=== PATIENT | male | born 1995 | race African-American/Black ===

== ENCOUNTER 2020-02-24 10:30 | Emergency (ER) | payer OTHER ==
[2020-02-24 10:49] VITALS: BP 106/70; PULSE 73; RESP 18; TEMP 98.1
--- NOTE | 2020-02-24 11:13 | ED ---
ENT HPI - General Chief complaint: ENT Stated complaint: sore throat Time Seen by Provider: 02/24/20 10:55 Source: patient, RN notes reviewed, old records reviewed Mode of arrival: ambulatory Limitations: no limitations - History of Present Illness Initial comments: 24 year old male, smoker whom presents today for complaints of sore throat, burning sensation for the past week. He reports no fever, chills. He occasionally has runny nose. Patient reports history of smoker cough. He reports no abdominal pain. - Related Data Previous Rx's Medication Instructions Recorded Famotidine 20 mg PO BID #12 tab 02/24/20 Fluticasone Propionate [Flonase 1 spray EA NOSTRIL DAILY #1 bottle 02/24/20 Allergy Relief] Sucralfate [Carafate] 1 gm PO BID #100 ml 02/24/20 Allergies Allergy/AdvReac Type Severity Reaction Status Date / Time No Known Allergies Allergy Verified 02/24/20 10:49 Review of Systems ROS Statement: Those systems with pertinent positive or pertinent negative responses have been documented in the HPI. ROS Other: All systems not noted in ROS Statement are negative. Past Medical History Past Medical History: No Reported History History of Any Multi-Drug Resistant Organisms: None Reported Past Surgical History: No Surgical Hx Reported Past Psychological History: No Psychological Hx Reported Smoking Status: Current every day smoker Past Alcohol Use History: None Reported Past Drug Use History: Marijuana General Exam Limitations: no limitations General appearance: alert, in no apparent distress Head exam: Present: atraumatic, normocephalic, normal inspection Eye exam: Present: normal appearance, PERRL, EOMI. Absent: scleral icterus, conjunctival injection, periorbital swelling ENT exam: Present: normal exam, mucous membranes moist, other (minimal erythema, no exudate or swelling. Patient reports the pain is lower into the lower neck and esophagous. ) Neck exam: Present: normal inspection. Absent: tenderness, meningismus, lymphadenopathy Respiratory exam: Present: normal lung sounds bilaterally. Absent: respiratory distress, wheezes, rales, rhonchi, stridor Cardiovascular Exam: Present: regular rate, normal rhythm, normal heart sounds. Absent: systolic murmur, diastolic murmur, rubs, gallop, clicks Extremities exam: Present: normal inspection, full ROM, normal capillary refill. Absent: tenderness, pedal edema, joint swelling, calf tenderness Back exam: Present: normal inspection Neurological exam: Present: alert, oriented X3, CN II-XII intact Psychiatric exam: Present: normal affect, normal mood Skin exam: Present: warm, dry, intact, normal color. Absent: rash Course Vital Signs 02/24/20 10:46 Temperature 98.1 F Pulse Rate 73 Respiratory 18 Rate Blood Pressure 106/70 O2 Sat by Pulse 100 Oximetry Medical Decision Making - Medical Decision Making 24 year old male presents today for concern for sore throat, burning sensation over the past week. He has no fever and has normal oropharynx. Discussed this is likely related to smoking and likely GERD. Discussed antacid medication, stopping smoking, and PCP follow up. He complains of some nasal irritation and swelling, and discussed likely allergies and to use nasal steriod spray. Return parameters discussed. Disposition Clinical Impression: Smoker, Pharyngitis Disposition: HOME SELF-CARE Condition: Good Instructions (If sedation given, give patient instructions): Pharyngitis (ED) Additional Instructions: Patient is stop smoking. Follow-up with primary care physician. Congestion nasal spray, throat lozenges and an acid medicine as prescribed. Return the ED if any alarming signs or symptoms occur. Prescriptions: Sucralfate [Carafate] 1 gm PO BID #100 ml Famotidine 20 mg PO BID #12 tab Fluticasone Propionate [Flonase Allergy Relief] 1 spray EA NOSTRIL DAILY #1 bot tle Is patient prescribed a controlled substance at d/c from ED?: No Referrals: None,Stated [Primary Care Provider] - 1-2 days Time of Disposition: 11:09
== END 2020-02-24 11:28 | disposition home or self-care (01) ==
LOC: EC 10:30
DX: J02.9 Acute pharyngitis, unspecified (principal); F17.200 Nicotine dependence, unspecified, uncomplicated
CPT/HCPCS: 99283

== ENCOUNTER 2020-03-07 14:50 | Emergency (ER) | payer OTHER ==
[2020-03-07 14:56] VITALS: RESP 18
[2020-03-07] MEDS ORDERED: IBUPROFEN 800 MG TAB PO STA (15:08)
--- NOTE | 2020-03-07 15:08 | ED ---
Upper Extremity HPI - General Chief Complaint: Extremity Injury, Upper Stated Complaint: thumb caught in press Time Seen by Provider: 03/07/20 15:00 Source: patient Mode of arrival: ambulatory Limitations: no limitations - History of Present Illness Initial Comments: Patient is a 24-year-old male presents to emergency Department with a chief complaint of a thumb injury. 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 Patient does report a skin tear on the dorsal aspect of the thumb. Patient denies taking medication to alleviate the symptoms. Denies any numbness or tingling. States he has full range of motion in the thumb. States the incident occurred about one hour prior to arrival. Denies any alleviating or aggravating factors. - Related Data Previous Rx's Medication Instructions Recorded Famotidine 20 mg PO BID #12 tab 02/24/20 Fluticasone Propionate [Flonase 1 spray EA NOSTRIL DAILY #1 bottle 02/24/20 Allergy Relief] Sucralfate [Carafate] 1 gm PO BID #100 ml 02/24/20 Allergies Allergy/AdvReac Type Severity Reaction Status Date / Time No Known Allergies Allergy Verified 03/07/20 14:56 Review of Systems ROS Statement: Those systems with pertinent positive or pertinent negative responses have been documented in the HPI. ROS Other: All systems not noted in ROS Statement are negative. Past Medical History Past Medical History: No Reported History History of Any Multi-Drug Resistant Organisms: None Reported Past Surgical History: No Surgical Hx Reported Past Psychological History: No Psychological Hx Reported Smoking Status: Current every day smoker Past Alcohol Use History: None Reported Past Drug Use History: Marijuana General Exam Limitations: no limitations General appearance: alert, in no apparent distress Head exam: Present: atraumatic, normocephalic, normal inspection Eye exam: Present: normal appearance, PERRL, EOMI Pupils: Present: normal accommodation ENT exam: Present: normal exam, normal oropharynx, mucous membranes moist Neck exam: Present: normal inspection, full ROM Respiratory exam: Present: normal lung sounds bilaterally Cardiovascular Exam: Present: regular rate, normal rhythm, normal heart sounds Extremities exam: Present: full ROM (Full range of motion in the left thumb.), tenderness (Tenderness at the site of injury), normal capillary refill, other (+2 ulnar and radial pulses bilaterally.). Absent: normal inspection (Skin tear on the dorsal aspect on the interphalangeal joint.) Back exam: Present: normal inspection, full ROM Neurological exam: Present: alert, oriented X3 Psychiatric exam: Present: normal affect, normal mood Skin exam: Present: warm, dry, intact, normal color Course Vital Signs 03/07/20 03/07/20 14:54 16:55 Temperature 98.4 F 96.9 F L Pulse Rate 99 105 H Respiratory 18 18 Rate Blood Pressure 119/79 136/68 O2 Sat by Pulse 100 99 Oximetry Medical Decision Making - Medical Decision Making Patient is a 24-year-old male presenting to emergency Department with a chief complaint of a thumb injury. On exam patient does appear to have a skin tear on the left interphalangeal joint of the thumb. However, he does have full range of motion with a normal neurovascular exam. X-ray is unremarkable. Patient was given oral ibuprofen. On reevaluation patient reports improvement in symptoms. Patient advised to apply ice compress an alternate between Tylenol and Motrin for pain control. Return parameters were thoroughly discussed with patient was understanding and agreeable. Case discussed with physician. Disposition Clinical Impression: Injury of thumb, left Disposition: HOME SELF-CARE Condition: Stable Instructions (If sedation given, give patient instructions): Crush Injury (ED) Additional Instructions: Apply ice compress alternate between Tylenol Motrin for pain control. Return to emergency department if symptoms worsen. Is patient prescribed a controlled substance at d/c from ED?: No Referrals: None,Stated [Primary Care Provider] - 1-2 days Time of Disposition: 16:16
--- NOTE | 2020-03-07 15:28 | XR ---
EXAMINATION TYPE: XR hand complete LT DATE OF EXAM: 03/07/2020 CLINICAL HISTORY: Crushing injury worse over first and second fingers with pain TECHNIQUE: Frontal, lateral and oblique images of the left hand are obtained. COMPARISON: None. FINDINGS: There is no acute fracture/dislocation evident in the left hand with particular attention to first and second fingers at the area of clinical concern. The joint spaces in the left hand appear within normal limits. The overlying soft tissue appears unremarkable. IMPRESSION: There is no acute fracture or dislocation in the left hand.
[2020-03-07 16:56] VITALS: BP 136/68; PULSE 105; TEMP 96.9
== END 2020-03-07 16:56 | disposition home or self-care (01) ==
LOC: EC 14:50
DX: S61.012A Laceration without foreign body of left thumb without damage to nail, initial encounter (principal); F17.200 Nicotine dependence, unspecified, uncomplicated; W23.0XXA Caught, crushed, jammed, or pinched between moving objects, initial encounter
CPT/HCPCS: 99283

== ENCOUNTER 2020-11-11 16:16 | Emergency (ER) | payer OTHER ==
[2020-11-11 16:23] VITALS: RESP 18; TEMP 98.4
--- NOTE | 2020-11-11 16:51 | ED ---
Extremity Problem HPI - General Chief complaint: Extremity Problem,Nontraumatic Stated complaint: Chest pain, R arm numbness Time Seen by Provider: 11/11/20 16:33 Source: patient Mode of arrival: ambulatory Limitations: no limitations - History of Present Illness Initial comments: This is a 25-year-old male with no past medical history presents or urgency department for right upper extremity numbness. The patient states that he noticed it when he woke up earlier today. He states that at 4 AM when he went to bed he noticed a little bit of tingling in his face however states since then this has resolved however when he woke up he knows that he had numbness going down the posterior aspect of his right arm into the fourth and fifth digit. Patient states he has not had anything like this previously. He does admit to hitting his elbow on a piece of metal 2 or 3 days ago however has not noted any symptoms there. He does admit to intermittent episodes of right-sided neck pain and headaches which is been going on for quite some time. He does not currently have any pain or headache. He denies any facial droop, slurred speech, difficult he was swallowing. Denies any lower chrie weakness. Denies any weakness in the upper extremity. He does admit to intermittent episodes of chest palpitations and pain. He feels like the right side of his chest is twitching and this seems to be going into his right arm as well. He states that he does have a family history for strokes in his grandmother and was current concerned about a stroke. - Related Data Home Medications Medication Instructions Recorded Confirmed No Known Home Medications 11/11/20 11/11/20 Allergies Allergy/AdvReac Type Severity Reaction Status Date / Time No Known Allergies Allergy Verified 11/11/20 17:28 Review of Systems ROS Statement: Those systems with pertinent positive or pertinent negative responses have been documented in the HPI. ROS Other: All systems not noted in ROS Statement are negative. Past Medical History Past Medical History: No Reported History History of Any Multi-Drug Resistant Organisms: None Reported Past Surgical History: No Surgical Hx Reported Past Psychological History: No Psychological Hx Reported Smoking Status: Vaper Past Alcohol Use History: None Reported Past Drug Use History: Marijuana General Exam - General Exam Comments Initial Comments: Constitutional: Appears comfortable Head: Normocephalic atraumatic Eyes: no conjunctival injection No scleral icterus EOMI pupils 4mm and reactive b/l Neck: No JVD Supple, no midline tenderness Heart: Regular rate rhythm normal S1-S2 no murmurs Lungs: Clear to auscultation bilaterally No wheezing No rales Abdomen: Soft nondistended nontender Extremities: Non edematous DP pulses intact Radial pulses intact Neuro: A&Ox3 cranial nerves II through XII are grossly intact, 5 out of 5 strength in upper extremities and lower Chevys bilaterally specifically with some extension, finger abduction, wrist flexion and extension, extension and flexion at the elbow. The patient claims to have decreased sensation along the medial aspect of the right extremity from the elbow to the fourth and fifth digits. Psych: Appropriate mood and affect Limitations: no limitations Course Vital Signs 11/11/20 11/11/20 16:17 17:56 Temperature 98.4 F Pulse Rate 84 61 Respiratory 18 18 Rate Blood Pressure 111/64 106/70 O2 Sat by Pulse 100 99 Oximetry - Reevaluation(s) Reevaluation #1: EKG interpreted at 1743 showing normal sinus rhythm with a rate of 56. There is no abnormal ST segment changes or T-wave inversions. QTC is 387. Other intervals normal. No ectopy. 11/11/20 18:01 Medical Decision Making - Medical Decision Making This is a 25-year-old male who presents emergency department for right-sided extremity numbness. Patient reported numbness along the description of the ulnar nerve. He did not have any weakness in the extremity. I did not note any twitching or numbness in the chest or arm area on my examination however the patient stated that it did happen once after he got his imaging studies performed. The patient otherwise has no other focal neurologic findings on exam. CT head and the neck were unremarkable. Chest x-ray and EKG were also unremarkable. At this time feel the patient is likely suffering from peripheral neuropathy likely secondary to the injury that he sustained a few days ago. He needs close follow-up with his primary doctor and may require further testing including an EMG if his symptoms persist however anticipate that they should improve over the next few weeks. Told to return emergency Department if he has any worsening or changing symptoms at all. All questions were answered. Disposition Clinical Impression: Peripheral neuropathy Disposition: HOME SELF-CARE Condition: Stable Instructions (If sedation given, give patient instructions): Peripheral Neuropathy (ED) Is patient prescribed a controlled substance at d/c from ED?: No Referrals: Bazo,Charbal B, MD [REFERRING] - 1-2 days
--- NOTE | 2020-11-11 17:09 | CT ---
EXAMINATION TYPE: CT brain fritz wo con DATE OF EXAM: 11/11/2020 COMPARISON: None HISTORY: RIGHT ARM NUMBNESS. CT DLP: 1324.9 mGycm Automated exposure control for dose reduction was used. Ventricles have normal size. There is no mass effect nor midline shift. There is no sign of intracran ial hemorrhage. There is no evidence of cerebral edema. Calvarium is intact. Cervical vertebra have normal alignment. Posterior elements are intact. Facet joints are intact. Prev ertebral soft tissues appear normal. Mastoid sinuses appear normal. Occipital bone is intact. There i s mild mucosal thickening in the right maxillary and ethmoid sinus. IMPRESSION: Negative unenhanced head CT scan. Minimal sinusitis. Normal CT scan of the cervical spine.
--- NOTE | 2020-11-11 17:19 | XR ---
EXAMINATION TYPE: XR chest 2V DATE OF EXAM: 11/11/2020 COMPARISON: 06/01/2017 HISTORY: Right arm numbness TECHNIQUE: FINDINGS: Heart and mediastinum are normal. Lungs are clear. Diaphragm is normal. Bony thorax appears normal. IMPRESSION: Normal chest. No change.
[2020-11-11 17:57] VITALS: BP 106/70; PULSE 61
== END 2020-11-11 17:56 | disposition home or self-care (01) ==
LOC: EC 16:16
DX: G62.9 Polyneuropathy, unspecified (principal); F17.290 Nicotine dependence, other tobacco product, uncomplicated
CPT/HCPCS: 70450; 71046; 72125; 93005; 99285

== ENCOUNTER 2020-12-21 11:53 | Emergency (ER) | payer OTHER ==
[2020-12-21 11:58] VITALS: TEMP 98.2
--- NOTE | 2020-12-21 12:13 | ED ---
Upper Extremity HPI - General Chief Complaint: Extremity Injury, Upper Stated Complaint: rt arm problem Time Seen by Provider: 12/21/20 11:58 Source: patient, RN notes reviewed Mode of arrival: ambulatory Limitations: no limitations - History of Present Illness Initial Comments: 25-year-old male presents emergency Department chief complaint of right bicep pain ecchymotic. Patient states that he had no trauma but states it is bruising area and states that a small lump. Patient believes is just a hematoma. He states he hadn't no reason for this. Denies any chest pain or shortness breath no headache or dizziness currently. Patient denies any other complaints. - Related Data Previous Rx's Medication Instructions Recorded Ibuprofen [Motrin] 600 mg PO Q8HR PRN #20 tab 12/21/20 Allergies Allergy/AdvReac Type Severity Reaction Status Date / Time No Known Allergies Allergy Verified 12/21/20 11:55 Review of Systems ROS Statement: Those systems with pertinent positive or pertinent negative responses have been documented in the HPI. ROS Other: All systems not noted in ROS Statement are negative. Past Medical History Past Medical History: No Reported History History of Any Multi-Drug Resistant Organisms: None Reported Past Surgical History: No Surgical Hx Reported Past Psychological History: No Psychological Hx Reported Smoking Status: Vaper Past Alcohol Use History: None Reported Past Drug Use History: Marijuana General Exam Limitations: no limitations General appearance: alert, in no apparent distress Head exam: Present: atraumatic, normocephalic, normal inspection Eye exam: Present: normal appearance, PERRL, EOMI. Absent: scleral icterus, conjunctival injection, periorbital swelling Respiratory exam: Present: normal lung sounds bilaterally. Absent: respiratory distress, wheezes, rales, rhonchi, stridor Cardiovascular Exam: Present: regular rate, normal rhythm, normal heart sounds. Absent: systolic murmur, diastolic murmur, rubs, gallop, clicks Extremities exam: Present: other (Right bicep region there is 3 cm area of ecchymosis with varying color, there is a small palpable lump in that region pulses equal bilaterally Reflux 2 seconds no tenderness in the axilla no significant swelling.) Course Vital Signs 12/21/20 11:55 Temperature 98.2 F Pulse Rate 81 Respiratory 16 Rate Blood Pressure 109/66 O2 Sat by Pulse 100 Oximetry Medical Decision Making - Medical Decision Making Ultrasound shows evidence of superficial abdominal phlebitis. Patient will apply warm compresses, take ibuprofen. Patient will follow-up with dermatology for arm lesion. Return parameters were discussed. Disposition Clinical Impression: Arm skin lesion, right, Superficial thrombophlebitis of right upper extremity Disposition: HOME SELF-CARE Condition: Stable Instructions (If sedation given, give patient instructions): Superficial Thrombophlebitis (ED) Additional Instructions: Please return to the Emergency Department if symptoms worsen or any other concerns. Prescriptions: Ibuprofen [Motrin] 600 mg PO Q8HR PRN #20 tab PRN Reason: Pain Is patient prescribed a controlled substance at d/c from ED?: No Referrals: None,Stated [Primary Care Provider] - 1-2 days Sabrina Roque MD [STAFF PHYSICIAN] - 1-2 days Time of Disposition: 13:48
--- NOTE | 2020-12-21 13:32 | US ---
EXAMINATION TYPE: US venous doppler duplex UE RT DATE OF EXAM: 12/21/2020 COMPARISON: NONE CLINICAL HISTORY: pain. Palpable at right medial arm noted x 4 days, patient denies trauma SIDE PERFORMED: right Right Arm: Negative for DVT. At medial right arm palpable small hypoechoic oval mass is seen and size = 0.4 x 0.3 x 0.2cm. medial and posterior to this superficial mass is another larger hypoechoic oval mass at brachial fossa level and size = 1.0 x 0.4 x 0.4cm. Very small Basilic Vein is noted with thick connor and compresses to th ick connor, then becomes too small to evaluate. Very small and thick walled Cephalic Vein is also note d and partial compression is noted, to no compression is present. Patient stated pain is noted along upper arm Cephalic Vein level where unable to fully compress and vein is too small to evaluate. IMPRESSION: 1. Right upper extremity ultrasound negative for deep venous thrombosis. 2. Superficial venous thrombosis within the cephalic vein is present. Basilic vein to small to evalua te.
[2020-12-21 14:21] VITALS: BP 110/84; PULSE 83; RESP 18
== END 2020-12-21 14:21 | disposition home or self-care (01) ==
LOC: EC 11:53
DX: I80.8 Phlebitis and thrombophlebitis of other sites (principal); F12.90 Cannabis use, unspecified, uncomplicated
CPT/HCPCS: 99283

== ENCOUNTER 2021-01-04 18:50 | Emergency (ER) | payer OTHER ==
[2021-01-04 18:59] VITALS: BP 123/78; PULSE 80; RESP 18; TEMP 97.9
--- NOTE | 2021-01-04 19:19 | ED ---
Wound/Laceration HPI - General Source: patient Mode of arrival: ambulatory Limitations: no limitations <Adryan Shabazz - Last Filed: 01/06/21 00:13> <Jennie Ferguson - Last Filed: 01/06/21 10:13> - General Chief Complaint: Wound/Laceration Stated Complaint: glass in hand Time Seen by Provider: 01/04/21 19:04 - History of Present Illness Initial Comments: 25-year-old male presents to the emergency department with a chief complaint of glass in the fingers. Patient reports he tripped and fell on a mirror and la nded on his right hand. Patient believes he has small pieces of glass stuck in his fingers. States he was able to clean the most of it. This occurred about one hour prior to arrival. His tetanus is up-to-date. Denies any numbness or tingling. Reports minimal pain. Denies taking medication to alleviate the symptoms. States the pain is sharp whenever he tried to flex his fingers. But he does report full range of motion. (Adryan Shabazz) - Related Data Previous Rx's Medication Instructions Recorded Ibuprofen [Motrin] 600 mg PO Q8HR PRN #20 tab 12/21/20 Allergies Allergy/AdvReac Type Severity Reaction Status Date / Time No Known Allergies Allergy Verified 01/04/21 18:59 Review of Systems ROS Other: All systems not noted in ROS Statement are negative. <Adryan Shabazz - Last Filed: 01/06/21 00:13> ROS Other: All systems not noted in ROS Statement are negative. <Jennie Ferguson - Last Filed: 01/06/21 10:13> ROS Statement: Those systems with pertinent positive or pertinent negative responses have been documented in the HPI. Past Medical History Past Medical History: No Reported History History of Any Multi-Drug Resistant Organisms: None Reported Past Surgical History: No Surgical Hx Reported Past Psychological History: No Psychological Hx Reported Smoking Status: Vaper Past Alcohol Use History: None Reported Past Drug Use History: Marijuana <Adryan Shabazz - Last Filed: 01/06/21 00:13> General Exam Limitations: no limitations General appearance: alert, in no apparent distress Head exam: Present: atraumatic, normocephalic, normal inspection Eye exam: Present: normal appearance, PERRL, EOMI Pupils: Present: normal accommodation ENT exam: Present: normal exam, normal oropharynx, mucous membranes moist Neck exam: Present: normal inspection, tenderness, full ROM Respiratory exam: Present: normal lung sounds bilaterally. Absent: respiratory distress Cardiovascular Exam: Present: regular rate, normal rhythm, normal heart sounds Extremities exam: Present: full ROM, normal capillary refill, other (Sensation intact in the right hand. Palpable ulnar and radial pulses bilaterally.). Absent: normal inspection (Multiple small lacerations on the fingers of his right hand measuring less than 5 mm in diameter. No visible foreign bodies.), tenderness (No tenderness at the injured site), pedal edema, joint swelling, calf tenderness Back exam: Present: normal inspection, full ROM Neurological exam: Present: alert, oriented X3, normal gait Psychiatric exam: Present: normal affect, normal mood Skin exam: Present: warm, dry, intact, normal color <Adryan Shabazz - Last Filed: 01/06/21 00:13> Course Vital Signs 01/04/21 18:57 Temperature 97.9 F Pulse Rate 80 Respiratory 18 Rate Blood Pressure 123/78 O2 Sat by Pulse 99 Oximetry Medical Decision Making <Adryan Shabazz - Last Filed: 01/06/21 00:13> <Jennie Ferguson - Last Filed: 01/06/21 10:13> - Medical Decision Making 25-year-old male presents emergency Department with a chief complaint of laceration. On physical examination, no signs of foreign bodies in the hand. X-rays of the hand is unremarkable. Tetanus is up-to-date. The lacerations are so small, no repair is needed at this time. Patient advised to return to e mergency department if symptoms worsen. Case discussed with (Adryan Shabazz) I was available for consultation in the emergency department. The history and physical exam were done by the midlevel provider. I was consulted for this patients care. I reviewed the case with the midlevel provider and based on their presentation of the patient, I agree with the assessment, medical decision making and plan of care as documented. Chart was dictated using [employer] dictation software. Attempts were made to correct any dictation errors however some typographical errors may persist. Patient was seen during a national state of emergency due to the Covid-19 pandemic. (Jennie Ferguson) Disposition Is patient prescribed a controlled substance at d/c from ED?: No Time of Disposition: 20:02 <Adryan Shabazz - Last Filed: 01/06/21 00:13> <Jennie Ferguson - Last Filed: 01/06/21 10:13> Clinical Impression: Laceration, Hand injury Disposition: HOME SELF-CARE Condition: Stable Instructions (If sedation given, give patient instructions): Laceration (DC) Additional Instructions: Please return to the Emergency Department if symptoms worsen or any other concerns. Referrals: None,Stated [Primary Care Provider] - 1-2 days
--- NOTE | 2021-01-04 19:41 | XR ---
EXAMINATION TYPE: XR hand complete RT DATE OF EXAM: 01/04/2021 COMPARISON: NONE HISTORY: Fall. Pain. TECHNIQUE: 3 views FINDINGS: The metacarpals are intact. Fingers appear intact. I see no evidence of radiopaque foreign body. There is no fracture nor dislocation. IMPRESSION: Negative right hand exam. No fracture. No evidence of a foreign body.
== END 2021-01-04 20:12 | disposition home or self-care (01) ==
LOC: EC 18:50
DX: S61.210A Laceration without foreign body of right index finger without damage to nail, initial encounter (principal); S61.216A Laceration without foreign body of right little finger without damage to nail, initial encounter; S61.212A Laceration without foreign body of right middle finger without damage to nail, initial encounter; S61.214A Laceration without foreign body of right ring finger without damage to nail, initial encounter; S61.011A Laceration without foreign body of right thumb without damage to nail, initial encounter; W01.110A Fall on same level from slipping, tripping and stumbling with subsequent striking against sharp glass, initial encounter; F12.90 Cannabis use, unspecified, uncomplicated
CPT/HCPCS: 99283